=== PATIENT | male | born 1995 | race Two or more races ===

== ENCOUNTER 2025-07-01 10:57 | Emergency (ER) | payer BC, SELFPAY ==
[2025-07-01 11:19] VITALS: BP 125/87; PULSE 78; RESP 16; TEMP 36.8; O2SAT 98; BMI 32.4
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
[2025-07-01] MEDS: HYDROcodone/APAP 5/325 TABLET 1 TAB PO ×2 (11:44→14:31)
[2025-07-01] MEDS: KETOROLAC INJ 30 MG/ML VIAL IM (11:45)
[2025-07-01 12:22] LABS: Collection Type, Urine Clean Catch; Squamous Epithelial Cell,Urine 0 /hpf (0-5)
[2025-07-01 12:57] LABS: Bilirubin,Urine Negative (Negative); Blood,Urine Negative (Negative); Clarity,Urine Clear (Clear/Hazy); Color,Urine Lt-Yellow (Lt Yel-Yel); Glucose, Urine Negative (Negative); Ketones,Urine Negative (Negative); Leukocyte Esterase,Urine Negative (Negative); Nitrite,Urine Negative (Negative); PH,Urine 6.5 (5.0-7.0); Protein,Urine Negative (Neg - Trace); RBC,Urine 1 /hpf (0-3); Specific Gravity,Urine 1.012 (1.001-1.035); Urobilinogen,Urine Negative mg/dL (0.0-1.0); WBC,Urine < 1 /hpf (0-5)
== END 2025-07-01 14:44 | disposition home or self-care (01) ==
PROVIDERS: Physician Assistant; Emergency Provider Emergency Medicine; PCP Family Medicine
DX: M51.16 Intervertebral disc disorders with radiculopathy, lumbar region (principal); M25.78 Osteophyte, vertebrae; G95.29 Other cord compression
CPT/HCPCS: 72131; 81001; 96372; 99283; J1100; J1885; A9270